=== PATIENT | female | born 1985 | race Caucasian/White ===

== ENCOUNTER → 2017-03-08 | Outpatient (CLI) | payer OTHER ==
[~2017-03-08] MED LIST: ENDOCET 5-3251 EACH PO; IBUPROFEN800 MG PO; Motrin PO; NATALCARE RX1 TABLET PO; PROZAC20 MG PO; Percocet 5/325,Endoc PO
== END | disposition home or self-care (01) ==
LOC: CDC 14:24
DX: O16.9 Unspecified maternal hypertension, unspecified trimester (principal); Z3A.00 Weeks of gestation of pregnancy not specified
CPT/HCPCS: 93000

== ENCOUNTER 2017-09-05 05:18 | Inpatient (IN) | payer OTHER ==
[~2017-09-05] VITALS: Ht 170.2 cm; Wt 115.9 kg
[2017-09-05] VITALS (7 sets, daily range): BP systolic 104–136; BP diastolic 62–79
[~2017-09-05 05:18] MED LIST changes: +ADULT ASPIRIN R81 MG PO; +ALDOMET500 MG PO; +PRILOSEC OTC20 MG PO; +PROZAC40 MG PO
[2017-09-05] MEDS ORDERED: ENDOCET 5-3251 EACH PO (07:16)
[2017-09-05] MEDS ORDERED: IBUPROFEN800 MG PO (07:16)
[2017-09-06 03:35] VITALS: BP 114/61
[2017-09-06 06:45] LABS: BASOPHIL (%) 0.2 % (0-1); EOSINOPHIL (%) 2.3 % (0-5); EOSINOPHIL COUNT 0.2 K/uL (0-0.3); HEMATOCRIT 33.7 % (36.0-46.0); IMMATURE GRANULOCYTE (%) 0.4 % (0.0-0.7); LYMPHOCYTE (%) 19.8 % (15-42); LYMPHOCYTE COUNT 1.6 K/uL (1.0-2.8); MCH 30.6 PG (29.0-34.0); MCV 95.5 FL (83-99); MONOCYTE (%) 10.7 % (3-12); MONOCYTE COUNT 0.9 K/uL (0-0.8); NEUTROPHIL (%) 66.6 % (45-76); NEUTROPHIL COUNT 5.5 K/uL (1.8-6.4); PLATELET COUNT 85 K/uL (156-360); RBC DIS.WIDTH-CV 13.2 % (11.8-14.6); RED BLOOD COUNT 3.53 M/uL (3.80-5.20); WHITE BLOOD COUNT 8.3 K/uL (4.1-10.2)
[2017-09-06 06:54] LABS: HEMOGLOBIN 10.8 G/DL (11.9-15.5)
[2017-09-06 11:37] VITALS: BP 109/57
[2017-09-06 14:35] VITALS: BP 132/75
[2017-09-06 19:12] VITALS: BP 127/77
[2017-09-06 23:00] VITALS: BP 132/87
[2017-09-07 04:00] VITALS: BP 122/66
[2017-09-07 07:29] VITALS: BP 124/74
== END 2017-09-07 14:50 | disposition home or self-care (01) | DRG 765 ==
LOC: 2WEST 05:18 → 2SOUTH 13:44 → 2WEST 09-07 14:50
PROVIDERS: Obstetrics & Gynecology Gynecology
DX: O34.211 Maternal care for low transverse scar from previous cesarean delivery (principal); O15.1 Eclampsia complicating labor; O99.344 Other mental disorders complicating childbirth; O99.12 Other diseases of the blood and blood-forming organs and certain disorders involving the immune mechanism complicating childbirth; N85.8 Other specified noninflammatory disorders of uterus; O99.824 Streptococcus B carrier state complicating childbirth; O10.92 Unspecified pre-existing hypertension complicating childbirth; O99.214 Obesity complicating childbirth; F32.9 Major depressive disorder, single episode, unspecified; E66.01 Morbid (severe) obesity due to excess calories; O16.4 Unspecified maternal hypertension, complicating childbirth; D69.59 Other secondary thrombocytopenia; Z30.2 Encounter for sterilization; Z37.0 Single live birth; Z68.41 Body mass index [BMI] 40.0-44.9, adult; Z79.899 Other long term (current) drug therapy; Z3A.39 39 weeks gestation of pregnancy; Z80.3 Family history of malignant neoplasm of breast; Z80.0 Family history of malignant neoplasm of digestive organs; Z81.8 Family history of other mental and behavioral disorders
CPT/HCPCS: 36415; 85025; 86850; 86900; 86901; 88302; J0171; J0690; J1200; J1885; J2210; J2274; J2405; J7120